=== PATIENT | female | born 1945 | race Caucasian/White ===

== ENCOUNTER 2017-02-25 14:05 | Emergency (ER) | payer OTHER ==
[2017-02-25 15:24] LABS: BASOPHIL % 0.5 % (0-2); PLATELET COUNT 287 x10^3mcL (130-400)
[2017-02-25 15:32] LABS: CALCIUM 11.3 mg/dL (8.5-10.1); CARBON DIOXIDE 27.7 mmol/L (21-32); CREATININE SERUM 1.6 mg/dL (0.6-1.0); POTASSIUM SERUM 4.3 mmol/L (3.5-5.1)
[2017-02-25 15:37] LABS: BILIRUBIN TOTAL 0.6 mg/dL (0.20-1.00); TOTAL PROTEIN, SERUM 6.9 g/dL (6.4-8.2)
[2017-02-25 15:48] LABS: RED CELL DISTRIBUTION WIDTH 17.1 % (11.5-14.5)
[2017-02-25 16:33] VITALS: BP 129/79
== END 2017-02-25 16:33 | disposition home or self-care (01) ==
LOC: ED 14:05
PROVIDERS: Emergency Medicine
DX: M79.1 Myalgia (principal); R05 Cough; R09.89 Other specified symptoms and signs involving the circulatory and respiratory systems; I10 Essential (primary) hypertension
CPT/HCPCS: 87804